=== PATIENT | male | born 1965 | race Two or more races ===

== ENCOUNTER 2023-01-12 10:51 | Day surgery (SDC) | payer OTHER ==
[2023-01-12] MEDS ORDERED: FERRIC CARBOXYMALTOSE 750 MG in SODIUM CHLORIDE 250 ML IVPB ONE (11:15)
[2023-01-12 12:32] VITALS: BP 120/68; PULSE 65; RESP 16; TEMP 98.6
== END 2023-01-12 12:41 | disposition home or self-care (01) ==
LOC: FINFUSION 10:51 → FM/S 10:53 → FINFUSION 12:41
PROVIDERS: ATTEND Family Medicine
PROC: 3E033GC Introduction of Other Therapeutic Substance into Peripheral Vein, Percutaneous Approach (ICD-10-PCS; principal; 2023-01-12)
DX: D50.9 Iron deficiency anemia, unspecified (principal)
CPT/HCPCS: 96365; J1439